=== PATIENT | female | born 1935 | race Caucasian/White ===

== ENCOUNTER 2017-10-11 07:01 | Emergency (ER) | payer MEDICARE, BC ==
[~2017-10-11] VITALS: Ht 160 cm; Wt 62.8 kg
[~2017-10-11 07:01] MED LIST: ADV50250 IH; ALBU18HF2 IH; ALPR-304 PO; ASPI-41 PO; BIOT5CAP3 PO; CALC600T14 PO; CAR30T PO; CHOL200035 PO; DIGO125T78 PO; FURO-150 PO; GUAI600T45 PO; MAGN250T28 PO; OMEG300C2 PO; PANT40TA4 PO; PRED10TA PO; TIOT18CA7 IH; VALS40TA2 PO
[2017-10-11 08:04] LABS: BASOPHILS % (AUTO) 0.3 % (0-1); EOSINOPHILS # (AUTO) 0.1 X10'3 (0-0.9); HEMATOCRIT 32.6 % (35.0-45.0); HEMOGLOBIN 10.5 g/dl (12.0-16.0); LYMPHOCYTES # (AUTO) 0.9 X10'3 (1.1-4.8); LYMPHOCYTES % (AUTO) 14.5 % (21-51); MEAN CORPUSCULAR HEMOGLOBIN 28.6 PG (27.0-31.0); MEAN CORPUSCULAR HGB CONC 32.3 % (33.0-36.5); MEAN CORPUSCULAR VOLUME 88.6 FL (78-98); MEAN PLATELET VOLUME 7.4 FL (7.4-10.4); MONOCYTES # (AUTO) 0.7 X10'3 (0-0.9); MONOCYTES % (AUTO) 10.3 % (2-12); NEUTROPHILS # (AUTO) 4.7 X10'3 (1.8-7.7); NEUTROPHILS % (AUTO) 73.9 % (42-75); PLATELET COUNT 208 X10'3 (140-440); RED BLOOD COUNT 3.68 X10'6 (4.20-5.60); RED CELL DISTRIBUTION WIDTH 15.4 % (11.5-14.5); WHITE BLOOD COUNT 6.3 X10'3 (4.5-11.0)
[2017-10-11 08:21] LABS: ALANINE AMINOTRANSFERASE 32 U/L (12-78); ALBUMIN 3.3 G/DL (3.4-5.0); ALBUMIN/GLOBULIN RATIO 0.9 (1.1-1.5); ALKALINE PHOSPHATASE 90 IU/L (46-116); ANION GAP -1 (8-16); ASPARTATE AMINO TRANSFERASE 23 U/L (10-37); BILIRUBIN,TOTAL 0.2 MG/DL (0.1-1.0); BLOOD UREA NITROGEN 16 MG/DL (7-18); BUN/CREATININE RATIO 13.9 (6.6-38.0); CHLORIDE 95 MMOL/L (99-107); CREATININE 1.15 MG/DL (0.40-0.90); GLUCOSE 105 MG/DL (70-104); POTASSIUM 4.3 MMOL/L (3.5-5.1); SODIUM 138 MMOL/L (135-145); eGFR 45 ML/MIN
[2017-10-11 08:27] LABS: TOTAL CARBON DIOXIDE 44.1 MMOL/L (24-32)
[2017-10-11 08:34] LABS: D-DIMER 0.67 MG/L FEU (0-0.50); INR 0.9 INR; PARTIAL THROMBOPLASTIN TIME 23 SECONDS (22-32); PROTHROMBIN TIME 9.4 SECONDS (9.0-12.0)
[2017-10-11 09:45] VITALS: BP 124/62
== END 2017-10-11 14:03 | disposition home or self-care (01) ==
LOC: ER 07:02
DX: S51.812A Laceration without foreign body of left forearm, initial encounter (principal); R06.03 Acute respiratory distress; I48.91 Unspecified atrial fibrillation; I10 Essential (primary) hypertension; J44.9 Chronic obstructive pulmonary disease, unspecified; K21.9 Gastro-esophageal reflux disease without esophagitis; Z90.710 Acquired absence of both cervix and uterus; Z98.890 Other specified postprocedural states; Z88.8 Allergy status to other drugs, medicaments and biological substances; Z79.82 Long term (current) use of aspirin; Z79.899 Other long term (current) drug therapy; W18.11XA Fall from or off toilet without subsequent striking against object, initial encounter; Y93.89 Activity, other specified; Y92.89 Other specified places as the place of occurrence of the external cause; Y99.8 Other external cause status
CPT/HCPCS: 36415; 71045; 73090; 78582; 80053; 83880; 84484; 85025; 85379; 85610; 85730; 93005; 99285; A6446; A6449; A9539; A9540

== ENCOUNTER 2018-01-27 16:00 | Inpatient (IN) | payer MEDICARE, BC ==
[~2018-01-27] VITALS: Ht 160 cm; Wt 64.5 kg
[~2018-01-27 16:00] MED LIST changes: +0.9 % SODIUM CHLORIDE 10 ML VIAL ONE; +etomidate 2mg/ml inj. ONE; +rocuronium 10mg/ml inj IV ONE
[2018-01-27 16:22] LABS: BASOPHILS % (AUTO) 0.2 % (0-1); EOSINOPHILS % (AUTO) 0.1 % (0-6); HEMOGLOBIN 10.8 g/dl (12.0-16.0); LYMPHOCYTES # (AUTO) 0.5 X10'3 (1.1-4.8); LYMPHOCYTES % (AUTO) 4.6 % (21-51); MEAN CORPUSCULAR HEMOGLOBIN 27.9 PG (27.0-31.0); MEAN CORPUSCULAR VOLUME 90.2 FL (78-98); MEAN PLATELET VOLUME 6.9 FL (7.4-10.4); MONOCYTES # (AUTO) 0.6 X10'3 (0-0.9); MONOCYTES % (AUTO) 5.3 % (2-12); NEUTROPHILS # (AUTO) 9.9 X10'3 (1.8-7.7); NEUTROPHILS % (AUTO) 89.8 % (42-75); PLATELET COUNT 232 X10'3 (140-440); RED BLOOD COUNT 3.88 X10'6 (4.20-5.60); RED CELL DISTRIBUTION WIDTH 19.6 % (11.5-14.5); WHITE BLOOD COUNT 11.1 X10'3 (4.5-11.0)
[2018-01-27 16:38] LABS: ALANINE AMINOTRANSFERASE 36 U/L (12-78); ALBUMIN 3.4 G/DL (3.4-5.0); ALKALINE PHOSPHATASE 74 IU/L (46-116); ASPARTATE AMINO TRANSFERASE 27 U/L (10-37); BILIRUBIN,TOTAL 0.4 MG/DL (0.1-1.0); BLOOD UREA NITROGEN 14 MG/DL (7-18); CALCIUM 9.6 MG/DL (8.5-10.1); CHLORIDE 92 MMOL/L (99-107); GLUCOSE 136 MG/DL (70-104); POTASSIUM 3.7 MMOL/L (3.5-5.1); SODIUM 140 MMOL/L (135-145); TOTAL PROTEIN 6.7 G/DL (6.4-8.2); eGFR 53 ML/MIN
[2018-01-27 16:47] LABS: INR 0.9 INR; PARTIAL THROMBOPLASTIN TIME 22 SECONDS (22-32); PROTHROMBIN TIME 9.6 SECONDS (9.0-12.0)
[2018-01-27 16:51] LABS: ANION GAP -2 (8-16)
[2018-01-27 16:55] LABS: TOTAL CARBON DIOXIDE > 50 MMOL/L (24-32)
[2018-01-27 17:11] LABS: ABG BASE EXCESS 32.3 mmol/L (-2.0-3.0); ABG HCO3 64.2 mmol/L (22.0-26.0); ABG OXYGEN SATURATION 83.8 % (95-98); ABG PCO2 (T) 117.3 mmHg (32.0-45.0); ABG PH (T) 7.356 (7.350-7.450); ABG PO2 (T) 47.8 mmHg (83-108); ALLEN'S TEST Positive; FCOHb 1.1 % (0.5-1.5); FLOW 2 L/min; FMetHb 0.1 % (0.3-1.12); FO2Hb 82.8 % (94-100); TOTAL HEMOGLOBIN 11.3 G/dl (12.0-16.0)
[2018-01-27] MEDS ORDERED: methylPREDNISolone sod succ 125mg/2ml vial IV ONE (17:15)
[2018-01-27] MEDS ORDERED: ipratropium/albuterol 3ml nebule NEB ONE (17:15)
[2018-01-27] MEDS ORDERED: magnesium 4gm in 100ml NS 100 ML IV PRN (17:55)
[2018-01-27] MEDS ORDERED: magnesium 1gm/100ml D5W IVPB 100 ML IV PRN (17:55)
[2018-01-27] MEDS ORDERED: potassium Cl 40MEQ/NS 500ml 500 ML IV PRN ×2 (17:55)
[2018-01-27] MEDS ORDERED: ondansetron/PF 4mg/2ml inj IV PRN (17:55)
[2018-01-27] MEDS ORDERED: potassium Cl 20 mEq SR tablet PO PRN ×2 (17:55)
[2018-01-27] MEDS ORDERED: magnesium Cl slow-release 64mg tablet PO PRN (17:55)
[2018-01-27] MEDS: normal saline 1000ml 1,000 ML IV SCH (18:26)
[2018-01-27 20:00] VITALS: BP 135/68
[2018-01-27 21:30] LABS: ABG BASE EXCESS 30.5 mmol/L (-2.0-3.0); ABG HCO3 63.7 mmol/L (22.0-26.0); ABG OXYGEN SATURATION 98.5 % (95-98); ABG PCO2 (T) 139.2 mmHg (32.0-45.0); ABG PO2 (T) 140.4 mmHg (83-108); ALLEN'S TEST Positive; FCOHb 0.1 % (0.5-1.5); FMetHb 0.3 % (0.3-1.12); FO2Hb 98.1 % (94-100); PATIENT TEMPERATURE 37.3; TOTAL HEMOGLOBIN 11.1 G/dl (12.0-16.0)
[2018-01-27] MEDS ORDERED: fentaNYL/PF 50MCG/1 ML 2ML syringe IV PRN (22:55)
[2018-01-27] MEDS ORDERED: propofol 1000mg/100ml bottle 100 ML IV ONE (22:58)
[2018-01-27] MEDS ORDERED: ipratropium/albuterol 3ml nebule NEB SCH (23:00)
[2018-01-27] MEDS ORDERED: normal saline 1000ml 1,000 ML IV SCH (23:10)
[2018-01-27] MEDS: ipratropium/albuterol 3ml nebule NEB SCH (23:23)
[2018-01-27 23:30] VITALS: BP 188/94
[2018-01-27] MEDS ORDERED: rocuronium 10mg/ml inj IV ONE (23:30)
[2018-01-27] MEDS ORDERED: etomidate 2mg/ml inj. IV ONE (23:30)
[2018-01-27] MEDS: propofol 1000mg/100ml bottle 100 ML IV PRN (23:49)
[2018-01-28] VITALS (24 sets, daily range): BP systolic 98–172; BP diastolic 49–89
[2018-01-28 00:01] LABS: ABG HCO3 53.4 mmol/L (22.0-26.0); ABG PCO2 (T) 60.9 mmHg (32.0-45.0); ABG PO2 (T) 88.7 mmHg (83-108); ALLEN'S TEST Positive; FCOHb 0.2 % (0.5-1.5); FMetHb 0.1 % (0.3-1.12); FO2Hb 97.7 % (94-100); MINUTE VOLUME 8 L/min; PATIENT TEMPERATURE 36.5; PEEP 5 cm H2O; RESPIRATORY RATE 22 b/min; RESPIRATORY RATE (OBSERVED) 22 b/min; TIDAL VOLUME 350 mL; TOTAL HEMOGLOBIN 11.9 G/dl (12.0-16.0)
[2018-01-28] MEDS ORDERED: azithromycin/NS 500mg/250ml 250 ML IV ONE (00:05)
[2018-01-28] MEDS ORDERED: CefTRIAXone 2gm/D5W 50ml 50 ML IV ONE (00:05)
[2018-01-28 01:05] LABS: BASOPHILS % (AUTO) 0.3 % (0-1); EOSINOPHILS % (AUTO) 0 % (0-6); HEMATOCRIT 34.6 % (35.0-45.0); HEMOGLOBIN 11.3 g/dl (12.0-16.0); LYMPHOCYTES # (AUTO) 0.3 X10'3 (1.1-4.8); LYMPHOCYTES % (AUTO) 3.4 % (21-51); MEAN CORPUSCULAR HEMOGLOBIN 28.7 PG (27.0-31.0); MEAN CORPUSCULAR HGB CONC 32.6 % (33.0-36.5); MEAN CORPUSCULAR VOLUME 88.3 FL (78-98); MEAN PLATELET VOLUME 8.4 FL (7.4-10.4); MONOCYTES % (AUTO) 0.4 % (2-12); NEUTROPHILS # (AUTO) 7.7 X10'3 (1.8-7.7); NEUTROPHILS % (AUTO) 95.9 % (42-75); PLATELET COUNT 207 X10'3 (140-440); RED BLOOD COUNT 3.92 X10'6 (4.20-5.60); RED CELL DISTRIBUTION WIDTH 18.6 % (11.5-14.5)
[2018-01-28 01:22] LABS: ALBUMIN 3.2 G/DL (3.4-5.0); BLOOD UREA NITROGEN 16 MG/DL (7-18); BUN/CREATININE RATIO 15.4 (6.6-38.0); CALCIUM 9.7 MG/DL (8.5-10.1); CHLORIDE 94 MMOL/L (99-107); CREATININE 1.04 MG/DL (0.40-0.90); GLUCOSE 184 MG/DL (70-104); MAGNESIUM 2.2 MG/DL (1.5-2.4); POTASSIUM 4.3 MMOL/L (3.5-5.1); SODIUM 139 MMOL/L (135-145); eGFR 50 ML/MIN
[2018-01-28 01:40] LABS: ANION GAP -3 (8-16); TOTAL CARBON DIOXIDE 47.8 MMOL/L (24-32)
[2018-01-28] MEDS: methylPREDNISolone sod succ/PF 40mg inj. IV SCH ×4 (01:46→20:57)
[2018-01-28] MEDS: diltiazem 30mg tablet PO SCH ×4 (01:46→20:57)
[2018-01-28] MEDS: ipratropium/albuterol 3ml nebule NEB SCH ×6 (02:22→23:12)
[2018-01-28 05:06] LABS: ABG BASE EXCESS 20.9 mmol/L (-2.0-3.0); ABG HCO3 45.2 mmol/L (22.0-26.0); ABG OXYGEN SATURATION 95.9 % (95-98); ABG PCO2 (T) 50.4 mmHg (32.0-45.0); ABG PH (T) 7.573 (7.350-7.450); ABG PO2 (T) 70.6 mmHg (83-108); ALLEN'S TEST Positive; FCOHb 0.2 % (0.5-1.5); FMetHb 0.3 % (0.3-1.12); FO2Hb 95.4 % (94-100); MINUTE VOLUME 7 L/min; PATIENT TEMPERATURE 37.7; PEEP 5 cm H2O; RESPIRATORY RATE 18 b/min; RESPIRATORY RATE (OBSERVED) 18 b/min; TIDAL VOLUME 350 mL; TOTAL HEMOGLOBIN 11.4 G/dl (12.0-16.0)
[2018-01-28] MEDS: K and/or MAG REPLACEMENT MC SCH (06:59)
[2018-01-28] MEDS: pantoprazole 40 MG vial IV SCH (07:38)
[2018-01-28] MEDS: guaiFENesin 200 MG/10 ML oral syrup UD cup PO SCH ×3 (07:38→20:57)
[2018-01-28] MEDS: magnesium oxide 400mg tablet PO SCH (07:39)
[2018-01-28] MEDS: enoxaparin 40mg/0.4ml syringe SUBCUT SCH (07:39)
[2018-01-28] MEDS: vitamin D (cholecalciferol) 1,000 unit tablet PO SCH (07:39)
[2018-01-28] MEDS: calcium carbonate 500mg tablet PO SCH ×3 (07:39→20:57)
[2018-01-28] MEDS: losartan 25mg tablet PO SCH (08:00)
[2018-01-28] MEDS ORDERED: furosemide 20MG tablet PO SCH (08:00)
[2018-01-28] MEDS ORDERED: methylPREDNISolone sod succ/PF 40mg inj. IV SCH (08:00)
[2018-01-28] MEDS ORDERED: diltiazem 30mg tablet PO SCH (08:00)
[2018-01-28] MEDS: propofol 1000mg/100ml bottle 100 ML IV PRN ×3 (13:02→21:09)
[2018-01-28] MEDS: digoxin 125mcg (0.125mg) tablet PO SCH (13:04)
[2018-01-28] MEDS: aspirin 81mg tab.chew PO SCH (13:19)
[2018-01-28] MEDS: CefTRIAXone 2gm/D5W 50ml 50 ML IV SCH (20:57)
[2018-01-28] MEDS: azithromycin/NS 500mg/250ml 250 ML IV SCH (20:57)
[2018-01-28] MEDS ORDERED: glucagon, human recombinant 1mg kit SUBCUT PRN (21:30)
[2018-01-28] MEDS ORDERED: dextrose ORAL solution 15 GM/59 ML bottle PO PRN ×2 (21:30)
[2018-01-28] MEDS ORDERED: dextrose 50%-water 50ml dispensing syringe IV PRN ×2 (21:30)
[2018-01-28] MEDS ORDERED: MESSAGE TO PHARMACY PO ONE (21:30)
[2018-01-28 22:14] LABS: HEMOGLOBIN A1C 5.8 % (4.5-6.2)
[2018-01-29] VITALS (22 sets, daily range): BP systolic 97–154; BP diastolic 54–99
[2018-01-29] MEDS: dexmedetomidin/NS 400mcg/100ml 100 ML IV SCH (01:14)
[2018-01-29] MEDS: methylPREDNISolone sod succ/PF 40mg inj. IV SCH ×4 (02:08→20:22)
[2018-01-29] MEDS: guaiFENesin 200 MG/10 ML oral syrup UD cup PO SCH ×4 (02:08→20:23)
[2018-01-29] MEDS: diltiazem 30mg tablet PO SCH ×4 (02:08→20:22)
[2018-01-29] MEDS: insulin regular, human vial - multi-dose SQ SCH ×3 (02:32→15:21)
[2018-01-29] MEDS: mineral oil/petrolatum ophthal oint EACHEYE SCH ×4 (02:35→20:00)
[2018-01-29] MEDS: ipratropium/albuterol 3ml nebule NEB SCH ×6 (02:59→23:06)
[2018-01-29 03:11] LABS: ABG BASE EXCESS 15.3 mmol/L (-2.0-3.0); ABG HCO3 39.8 mmol/L (22.0-26.0); ABG OXYGEN SATURATION 94.4 % (95-98); ABG PCO2 (T) 48.4 mmHg (32.0-45.0); ABG PH (T) 7.533 (7.350-7.450); ABG PO2 (T) 64.8 mmHg (83-108); ALLEN'S TEST Positive; FCOHb 0.3 % (0.5-1.5); FMetHb 0.1 % (0.3-1.12); MINUTE VOLUME 6 L/min; PATIENT TEMPERATURE 36.9; PEEP 5 cm H2O; RESPIRATORY RATE 16 b/min; RESPIRATORY RATE (OBSERVED) 16 b/min; TIDAL VOLUME 350 mL; TOTAL HEMOGLOBIN 10.5 G/dl (12.0-16.0)
[2018-01-29] MEDS: propofol 1000mg/100ml bottle 100 ML IV PRN (06:21)
[2018-01-29 07:05] LABS: BASOPHILS % (AUTO) 0.1 % (0-1); EOSINOPHILS % (AUTO) 0 % (0-6); HEMATOCRIT 31.4 % (35.0-45.0); LYMPHOCYTES # (AUTO) 0.1 X10'3 (1.1-4.8); LYMPHOCYTES % (AUTO) 1.4 % (21-51); MEAN CORPUSCULAR HEMOGLOBIN 27.6 PG (27.0-31.0); MEAN CORPUSCULAR HGB CONC 31.7 % (33.0-36.5); MEAN CORPUSCULAR VOLUME 86.8 FL (78-98); MEAN PLATELET VOLUME 8.4 FL (7.4-10.4); MONOCYTES # (AUTO) 0.3 X10'3 (0-0.9); MONOCYTES % (AUTO) 2.7 % (2-12); NEUTROPHILS # (AUTO) 9.2 X10'3 (1.8-7.7); NEUTROPHILS % (AUTO) 95.8 % (42-75); PLATELET COUNT 187 X10'3 (140-440); RED BLOOD COUNT 3.62 X10'6 (4.20-5.60); RED CELL DISTRIBUTION WIDTH 20.3 % (11.5-14.5); WHITE BLOOD COUNT 9.6 X10'3 (4.5-11.0)
[2018-01-29 07:20] LABS: ALBUMIN 2.7 G/DL (3.4-5.0); ANION GAP 3 (8-16); BLOOD UREA NITROGEN 24 MG/DL (7-18); BUN/CREATININE RATIO 26.7 (6.6-38.0); CALCIUM 8.7 MG/DL (8.5-10.1); CHLORIDE 96 MMOL/L (99-107); GLUCOSE 212 MG/DL (70-104); MAGNESIUM 2.4 MG/DL (1.5-2.4); PREALBUMIN 18.2 MG/DL (19-36); SODIUM 138 MMOL/L (135-145); TOTAL CARBON DIOXIDE 39.3 MMOL/L (24-32); eGFR 60 ML/MIN
[2018-01-29] MEDS: enoxaparin 40mg/0.4ml syringe SUBCUT SCH (07:37)
[2018-01-29] MEDS: magnesium oxide 400mg tablet PO SCH (07:37)
[2018-01-29] MEDS: pantoprazole 40 MG vial IV SCH (07:37)
[2018-01-29] MEDS: digoxin 125mcg (0.125mg) tablet PO SCH (07:38)
[2018-01-29] MEDS: vitamin D (cholecalciferol) 1,000 unit tablet PO SCH (07:38)
[2018-01-29] MEDS: losartan 25mg tablet PO SCH (07:38)
[2018-01-29] MEDS: aspirin 81mg tab.chew PO SCH (07:38)
[2018-01-29] MEDS: calcium carbonate 500mg tablet PO SCH ×3 (07:39→20:22)
[2018-01-29] MEDS: K and/or MAG REPLACEMENT MC SCH (08:00)
[2018-01-29] MEDS: normal saline 1000ml 1,000 ML IV SCH (17:53)
[2018-01-29] MEDS: CefTRIAXone 2gm/D5W 50ml 50 ML IV SCH (20:22)
[2018-01-29] MEDS: azithromycin/NS 500mg/250ml 250 ML IV SCH (20:22)
[2018-01-29] MEDS: ALPRAZolam 0.25mg tablet PO PRN (20:32)
[2018-01-29] MEDS: insulin glargine (Lantus) pen - multi-dose SQ SCH (21:00)
[2018-01-30] VITALS (23 sets, daily range): BP systolic 140–169; BP diastolic 72–99
[2018-01-30] MEDS: mineral oil/petrolatum ophthal oint EACHEYE SCH ×4 (02:00→20:00)
[2018-01-30] MEDS: diltiazem 30mg tablet PO SCH ×4 (02:20→20:52)
[2018-01-30] MEDS: methylPREDNISolone sod succ/PF 40mg inj. IV SCH ×4 (02:20→20:52)
[2018-01-30] MEDS: guaiFENesin 200 MG/10 ML oral syrup UD cup PO SCH ×4 (02:20→21:06)
[2018-01-30] MEDS: ipratropium/albuterol 3ml nebule NEB SCH ×6 (02:49→23:11)
[2018-01-30 04:12] LABS: BASOPHILS # (AUTO) 0.1 X10'3 (0-0.2); BASOPHILS % (AUTO) 0.9 % (0-1); EOSINOPHILS # (AUTO) 0.2 X10'3 (0-0.9); EOSINOPHILS % (AUTO) 1.3 % (0-6); HEMATOCRIT 33.2 % (35.0-45.0); HEMOGLOBIN 10.7 g/dl (12.0-16.0); LYMPHOCYTES # (AUTO) 0.2 X10'3 (1.1-4.8); LYMPHOCYTES % (AUTO) 1.3 % (21-51); MEAN CORPUSCULAR HEMOGLOBIN 27.9 PG (27.0-31.0); MEAN CORPUSCULAR HGB CONC 32.1 % (33.0-36.5); MONOCYTES # (AUTO) 0.3 X10'3 (0-0.9); MONOCYTES % (AUTO) 2.2 % (2-12); NEUTROPHILS # (AUTO) 13.4 X10'3 (1.8-7.7); NEUTROPHILS % (AUTO) 94.3 % (42-75); PLATELET COUNT 211 X10'3 (140-440); RED BLOOD COUNT 3.82 X10'6 (4.20-5.60); RED CELL DISTRIBUTION WIDTH 20.9 % (11.5-14.5); WHITE BLOOD COUNT 14.2 X10'3 (4.5-11.0)
[2018-01-30 04:23] LABS: ALBUMIN 2.9 G/DL (3.4-5.0); ANION GAP 5 (8-16); BLOOD UREA NITROGEN 28 MG/DL (7-18); BUN/CREATININE RATIO 35.4 (6.6-38.0); CALCIUM 9.6 MG/DL (8.5-10.1); CHLORIDE 100 MMOL/L (99-107); CREATININE 0.79 MG/DL (0.40-0.90); GLUCOSE 152 MG/DL (70-104); MAGNESIUM 2.3 MG/DL (1.5-2.4); POTASSIUM 3.5 MMOL/L (3.5-5.1); SODIUM 143 MMOL/L (135-145); TOTAL CARBON DIOXIDE 38.2 MMOL/L (24-32); eGFR 69 ML/MIN
[2018-01-30 04:38] LABS: PLATELET ESTIMATE NORMAL
[2018-01-30 04:39] LABS: ANISOCYTOSIS 3+
[2018-01-30 04:42] LABS: ELLIPTOCYTES FEW; MICROCYTOSIS 2+; STOMATOCYTES FEW; TARGET CELLS FEW; TEAR DROP CELLS FEW
[2018-01-30] MEDS: aspirin 81mg tab.chew PO SCH (08:00)
[2018-01-30] MEDS: K and/or MAG REPLACEMENT MC SCH (08:00)
[2018-01-30] MEDS: enoxaparin 40mg/0.4ml syringe SUBCUT SCH (08:07)
[2018-01-30] MEDS: vitamin D (cholecalciferol) 1,000 unit tablet PO SCH (08:08)
[2018-01-30] MEDS: magnesium oxide 400mg tablet PO SCH (08:10)
[2018-01-30] MEDS: losartan 25mg tablet PO SCH (08:10)
[2018-01-30] MEDS: calcium carbonate 500mg tablet PO SCH ×3 (08:11→20:52)
[2018-01-30] MEDS: digoxin 125mcg (0.125mg) tablet PO SCH (08:13)
[2018-01-30] MEDS: pantoprazole 40 MG vial IV SCH (08:13)
[2018-01-30] MEDS: dexmedetomidin/NS 400mcg/100ml 100 ML IV SCH (09:36)
[2018-01-30] MEDS: ALPRAZolam 0.25mg tablet PO PRN (09:42)
[2018-01-30] MEDS: traMADol 50MG tablet PO PRN (15:21)
[2018-01-30] MEDS: azithromycin/NS 500mg/250ml 250 ML IV SCH (20:52)
[2018-01-30] MEDS: CefTRIAXone 2gm/D5W 50ml 50 ML IV SCH (20:53)
[2018-01-30] MEDS: insulin glargine (Lantus) pen - multi-dose SQ SCH (21:00)
[2018-01-31] VITALS (14 sets, daily range): BP systolic 138–164; BP diastolic 69–88
[2018-01-31] MEDS: mineral oil/petrolatum ophthal oint EACHEYE SCH ×3 (02:00→12:56)
[2018-01-31] MEDS: guaiFENesin 200 MG/10 ML oral syrup UD cup PO SCH ×3 (02:17→13:04)
[2018-01-31] MEDS: diltiazem 30mg tablet PO SCH ×3 (02:18→13:04)
[2018-01-31] MEDS: methylPREDNISolone sod succ/PF 40mg inj. IV SCH ×3 (02:18→13:04)
[2018-01-31] MEDS: traMADol 50MG tablet PO PRN (02:18)
[2018-01-31] MEDS: ALPRAZolam 0.25mg tablet PO PRN (02:24)
[2018-01-31] MEDS: ipratropium/albuterol 3ml nebule NEB SCH ×3 (03:01→12:14)
[2018-01-31 05:06] LABS: BASOPHILS % (AUTO) 0 % (0-1); EOSINOPHILS % (AUTO) 0 % (0-6); HEMATOCRIT 31.3 % (35.0-45.0); HEMOGLOBIN 9.9 g/dl (12.0-16.0); LYMPHOCYTES # (AUTO) 0.2 X10'3 (1.1-4.8); LYMPHOCYTES % (AUTO) 1.6 % (21-51); MEAN CORPUSCULAR HEMOGLOBIN 27.7 PG (27.0-31.0); MEAN CORPUSCULAR HGB CONC 31.6 % (33.0-36.5); MEAN CORPUSCULAR VOLUME 87.7 FL (78-98); MONOCYTES # (AUTO) 0.5 X10'3 (0-0.9); MONOCYTES % (AUTO) 4.3 % (2-12); NEUTROPHILS # (AUTO) 10.1 X10'3 (1.8-7.7); NEUTROPHILS % (AUTO) 94.1 % (42-75); PLATELET COUNT 187 X10'3 (140-440); RED BLOOD COUNT 3.57 X10'6 (4.20-5.60); RED CELL DISTRIBUTION WIDTH 20.9 % (11.5-14.5); WHITE BLOOD COUNT 10.7 X10'3 (4.5-11.0)
[2018-01-31 05:17] LABS: ALBUMIN 2.8 G/DL (3.4-5.0); ANION GAP 1 (8-16); BLOOD UREA NITROGEN 34 MG/DL (7-18); BUN/CREATININE RATIO 47.2 (6.6-38.0); CHLORIDE 101 MMOL/L (99-107); CREATININE 0.72 MG/DL (0.40-0.90); GLUCOSE 156 MG/DL (70-104); MAGNESIUM 2.4 MG/DL (1.5-2.4); POTASSIUM 3.8 MMOL/L (3.5-5.1); SODIUM 142 MMOL/L (135-145); eGFR 77 ML/MIN
[2018-01-31 07:03] LABS: ANISOCYTOSIS 3+; PLATELET ESTIMATE NORMAL
[2018-01-31] MEDS: aspirin 81mg tab.chew PO SCH ×2 (08:00→08:33)
[2018-01-31] MEDS: K and/or MAG REPLACEMENT MC SCH (08:20)
[2018-01-31] MEDS: vitamin D (cholecalciferol) 1,000 unit tablet PO SCH (08:32)
[2018-01-31] MEDS: pantoprazole 40 MG vial IV SCH (08:32)
[2018-01-31] MEDS: magnesium oxide 400mg tablet PO SCH (08:33)
[2018-01-31] MEDS: losartan 25mg tablet PO SCH (08:33)
[2018-01-31] MEDS: calcium carbonate 500mg tablet PO SCH ×2 (08:33→13:04)
[2018-01-31] MEDS: digoxin 125mcg (0.125mg) tablet PO SCH (08:34)
[2018-01-31] MEDS: enoxaparin 40mg/0.4ml syringe SUBCUT SCH (08:34)
[2018-01-31] MEDS ORDERED: lactobacillus rhamnosus 10,000 MMU CELLS/CAPSULE PO SCH (20:00)
[2018-02-01] MEDS ORDERED: pantoprazole 40mg Tablet.DR PO SCH (07:30)
[2018-02-01] MEDS ORDERED: azithromycin 250mg tablet PO SCH (08:00)
== END 2018-01-31 15:46 | disposition home health service (06) | DRG 208 ==
LOC: ER 16:00 → ED HOLD 17:53 → PCU 3S 19:32 → CICU 2S 22:30
PROVIDERS: ADMIT Internal Medicine; ATTEND Internal Medicine Critical Care Medicine
PROC: 5A1945Z Respiratory Ventilation, 24-96 Consecutive Hours (ICD-10-PCS; principal; 2018-01-27)
PROC: 0BH17EZ Insertion of Endotracheal Airway into Trachea, Via Natural or Artificial Opening (ICD-10-PCS; 2018-01-27)
PROC: 5A09357 Assistance with Respiratory Ventilation, Less than 24 Consecutive Hours, Continuous Positive Airway Pressure (ICD-10-PCS; 2018-01-27)
DX: J96.01 Acute respiratory failure with hypoxia (principal); R40.20 Unspecified coma; C34.11 Malignant neoplasm of upper lobe, right bronchus or lung; J44.1 Chronic obstructive pulmonary disease with (acute) exacerbation; J96.02 Acute respiratory failure with hypercapnia; I10 Essential (primary) hypertension; K21.9 Gastro-esophageal reflux disease without esophagitis; F41.9 Anxiety disorder, unspecified; I48.2 Chronic atrial fibrillation; K58.9 Irritable bowel syndrome, unspecified; Z66 Do not resuscitate; Z51.5 Encounter for palliative care; Z90.710 Acquired absence of both cervix and uterus; Z99.81 Dependence on supplemental oxygen; Z88.8 Allergy status to other drugs, medicaments and biological substances; Z91.041 Radiographic dye allergy status; Z79.899 Other long term (current) drug therapy; Z85.41 Personal history of malignant neoplasm of cervix uteri; Z86.73 Personal history of transient ischemic attack (TIA), and cerebral infarction without residual deficits; Z87.891 Personal history of nicotine dependence
CPT/HCPCS: 36415; 36600; 71045; 80048; 80053; 80162; 82803; 82948; 83036; 83605; 83735; 83880; 84134; 84145; 84484; 85018; 85025; 85610; 85730; 87040; 87070; 93005; 94002; 94003; 94640; 94660; 94760; 97110; 97116; 97161; 97530; 97535; 99291; C9113; G0378; J0456; J0696; J1650; J1815; J2704; J2920; J2930; J3010; J3490

== ENCOUNTER 2018-02-02 06:14 | Emergency (ER) | payer MEDICARE, BC ==
[~2018-02-02] VITALS: Ht 160 cm; Wt 61.3 kg
[~2018-02-02 06:14] MED LIST changes: -0.9 % SODIUM CHLORIDE 10 ML VIAL ONE; -ASPI-41 PO; -etomidate 2mg/ml inj. ONE; -rocuronium 10mg/ml inj IV ONE
[2018-02-02] MEDS ORDERED: HYDROcodone/acetaminophen 10/325mg tab PO ONE (06:50)
[2018-02-02] MEDS ORDERED: HYDR-3965 PO (07:01)
[2018-02-02 07:38] VITALS: BP 134/70
== END 2018-02-02 07:48 | disposition home or self-care (01) ==
LOC: ER 06:15
DX: S52.592A Other fractures of lower end of left radius, initial encounter for closed fracture (principal); I48.91 Unspecified atrial fibrillation; I10 Essential (primary) hypertension; J44.9 Chronic obstructive pulmonary disease, unspecified; K21.9 Gastro-esophageal reflux disease without esophagitis; Z90.710 Acquired absence of both cervix and uterus; Z98.890 Other specified postprocedural states; Z85.118 Personal history of other malignant neoplasm of bronchus and lung; Z86.73 Personal history of transient ischemic attack (TIA), and cerebral infarction without residual deficits; Z88.8 Allergy status to other drugs, medicaments and biological substances; Z79.899 Other long term (current) drug therapy; Z79.82 Long term (current) use of aspirin; Z88.1 Allergy status to other antibiotic agents; W19.XXXA Unspecified fall, initial encounter; Y93.89 Activity, other specified; Y92.89 Other specified places as the place of occurrence of the external cause; Y99.9 Unspecified external cause status
CPT/HCPCS: 29125; 73110; 99284